=== PATIENT | female | born 1940 | race Caucasian/White ===

== ENCOUNTER 2019-07-08 11:19 | Inpatient (IN) ==
[2019-07-08] MEDS ORDERED: INFLUENZA VIRUS VACCINE 0.5 ML SYRINGE IM ONE (13:48)
[2019-07-08] MEDS ORDERED: MORPHINE 4 MG/1 ML VIAL IV PRN (14:39)
[2019-07-08] MEDS: PIPERACILLIN/TAZOBACTAM 3,375 MG in SODIUM CHLORIDE 0.9% 100 ML IV SCH ×2 (15:46→23:49)
[2019-07-08] MEDS: SODIUM CHLORIDE 0.9% 1,000 ML IV SCH (21:09)
[2019-07-08] MEDS: BISOPROLOL 5 MG TABLET PO SCH (21:13)
[2019-07-08] MEDS: DORZOLAMIDE/TIMOLOL OPH SOLN 10 ML BOTTLE BOTH EYES SCH (21:14)
[2019-07-08] MEDS: LATANOPROST 0.005% OPH SOLN 2.5 ML BOTTLE BOTH EYES SCH (21:15)
[2019-07-09 05:07] LABS: Basophils # 0.1 10*3/uL (0.0-0.2); Basophils % 0.4 % (0.0-0.8); Hematocrit 44.5 VOL% (35.7-47.0); Hemoglobin 13.9 GM/DL (12.0-16.0); Immature Granulocytes % 1.1 %; Immature Granulocytes Absolute 0.14 #; Lymphocytes # 1.8 10*3/uL (1.4-4.0); Lymphocytes % 13.5 % (21.3-54.2); Mean Corpuscular HGB Conc 31.2 GM/DL (32-36); Mean Corpuscular Volume 96.5 FL (87-102); Mean Platelet Volume 10.3 FL (9.6-12.0); Monocytes % 6.3 % (1.7-12.7); Neutrophils % 78.7 % (38.7-73.9); Platelet Count 205 T/CUMM (130-400); Red Blood Count 4.61 MC/CUMM (3.8-5.5); Red Cell Distribution Width 14.7 % (9.3-17.3); White Blood Count 13.2 T/CUMM (4-12)
[2019-07-09 05:22] LABS: Albumin 3.2 G/DL (3.4-5.0); Bilirubin,Total 0.9 MG/DL (0.2-1.0); Calcium 9.8 MG/DL (8.5-10.1); Osmolality,Calculated 303.7 MOS/KG (273-304); Total Protein 6.3 G/DL (6.4-8.3)
[2019-07-09] MEDS: PIPERACILLIN/TAZOBACTAM 3,375 MG in SODIUM CHLORIDE 0.9% 100 ML IV SCH ×3 (06:46→22:40)
[2019-07-09] MEDS: SODIUM CHLORIDE 0.9% 1,000 ML IV SCH ×3 (08:29→22:40)
[2019-07-09] MEDS: amLODIPine 5 MG TABLET PO SCH (09:21)
[2019-07-09] MEDS: DORZOLAMIDE/TIMOLOL OPH SOLN 10 ML BOTTLE BOTH EYES SCH ×2 (09:21→20:25)
[2019-07-09] MEDS: BISOPROLOL 5 MG TABLET PO SCH ×2 (09:21→20:25)
[2019-07-09] MEDS: LATANOPROST 0.005% OPH SOLN 2.5 ML BOTTLE BOTH EYES SCH (20:25)
[2019-07-10 05:09] LABS: Basophils # 0.1 10*3/uL (0.0-0.2); Basophils % 0.5 % (0.0-0.8); Hematocrit 43.5 VOL% (35.7-47.0); Hemoglobin 13.5 GM/DL (12.0-16.0); Immature Granulocytes % 0.8 %; Immature Granulocytes Absolute 0.09 #; Lymphocytes # 1.5 10*3/uL (1.4-4.0); Lymphocytes % 13.8 % (21.3-54.2); Mean Corpuscular Volume 96.5 FL (87-102); Monocytes % 6.6 % (1.7-12.7); Neutrophils % 78.3 % (38.7-73.9); Platelet Count 178 T/CUMM (130-400); Red Blood Count 4.51 MC/CUMM (3.8-5.5); Red Cell Distribution Width 14.7 % (9.3-17.3)
[2019-07-10 05:41] LABS: Bilirubin,Total 0.7 MG/DL (0.2-1.0); Calcium 9.4 MG/DL (8.5-10.1); Osmolality,Calculated 304.3 MOS/KG (273-304); Total Protein 6.2 G/DL (6.4-8.3)
[2019-07-10] MEDS: PIPERACILLIN/TAZOBACTAM 3,375 MG in SODIUM CHLORIDE 0.9% 100 ML IV SCH ×2 (06:06→16:00)
[2019-07-10] MEDS ORDERED: ONDANSETRON 4 MG/2 ML VIAL IV PRN ×2 (07:14→13:13)
[2019-07-10] MEDS ORDERED: LIDOCAINE 1%/EPI INJ 20 ML VIAL ONE ×2 (07:43→09:13)
[2019-07-10] MEDS ORDERED: TISSUE ADHESIVE 1 EACH APPLICATOR TOP ONE ×2 (07:44→09:13)
[2019-07-10] MEDS: DORZOLAMIDE/TIMOLOL OPH SOLN 10 ML BOTTLE BOTH EYES SCH ×2 (08:45→21:22)
[2019-07-10] MEDS: amLODIPine 5 MG TABLET PO SCH (08:45)
[2019-07-10] MEDS: BISOPROLOL 5 MG TABLET PO SCH ×2 (08:45→21:21)
[2019-07-10] MEDS: SODIUM CHLORIDE 0.9% 1,000 ML IV SCH (09:15)
[2019-07-10] MEDS ORDERED: ceFAZolin 1,000 MG VIAL ONE (10:27)
[2019-07-10] MEDS ORDERED: SODIUM CHLORIDE 0.9% 1,000 ML IV PRN (11:14)
[2019-07-10] MEDS ORDERED: SUGAMMADEX 200 MG/2 ML VIAL IV ONE (12:22)
[2019-07-10] MEDS ORDERED: PROPOFOL 200 MG/20 ML VIAL IV ONE (12:54)
[2019-07-10] MEDS ORDERED: ETOMIDATE 40 MG/20 ML VIAL IV ONE (12:55)
[2019-07-10] MEDS ORDERED: LIDOCAINE 2% 5 ML VIAL ONE (12:55)
[2019-07-10] MEDS ORDERED: fentaNYL 100 MCG/2 ML VIAL ONE (12:55)
[2019-07-10] MEDS ORDERED: GLYCOPYRROLATE 0.4 MG/2 ML VIAL ONE (12:55)
[2019-07-10] MEDS ORDERED: PHENYLEPHRINE 1 MG/10 ML SYRINGE IV ONE (12:55)
[2019-07-10] MEDS ORDERED: ONDANSETRON 4 MG/2 ML VIAL ONE ×2 (12:55→13:00)
[2019-07-10] MEDS ORDERED: HYDROCORTISONE 100 MG VIAL ONE (12:55)
[2019-07-10] MEDS ORDERED: SEVOFLURANE 1 UNIT/15 MINUTE INH ONE (12:55)
[2019-07-10] MEDS ORDERED: NEOSTIGMINE 10 MG/10 ML VIAL ONE (12:56)
[2019-07-10] MEDS ORDERED: ROCURONIUM 100 MG/10 ML VIAL IV ONE (12:56)
[2019-07-10] MEDS ORDERED: SODIUM CHLORIDE 0.9% 1,000 ML IV ONE (12:56)
[2019-07-10] MEDS ORDERED: ALBUTEROL/IPRATROPIUM 3 ML NEB RESP TX PRN (12:58)
[2019-07-10] MEDS ORDERED: MORPHINE 4 MG/1 ML VIAL IV PRN ×2 (12:58)
[2019-07-10] MEDS ORDERED: ACETAMINOPHEN 325 MG TABLET PO PRN (12:58)
[2019-07-10] MEDS ORDERED: HYDROmorphone 2 MG/1 ML VIAL ONE (13:00)
[2019-07-10] MEDS: HYDROmorphone 2 MG/1 ML VIAL IV PRN ×3 (13:09→19:53)
[2019-07-10] MEDS: DEXTROSE 5% NACL 0.45% 1,000 ML IV SCH (14:00)
[2019-07-10] MEDS ORDERED: HYDROmorphone 2 MG/1 ML VIAL IV PRN (15:00)
[2019-07-10] MEDS: cefOXitin 2,000 MG in SYRINGE 1 EACH IV SCH ×2 (16:15→23:54)
[2019-07-10] MEDS: ONDANSETRON 4 MG/2 ML VIAL IV PRN (17:20)
[2019-07-10 17:26] LABS: Osmolality,Calculated 303.4 MOS/KG (273-304)
[2019-07-10 17:27] LABS: PT Patient Result 10.4 SECS (9.6-12.2)
[2019-07-10 18:36] LABS: Basophils # 0.1 10*3/uL (0.0-0.2); Basophils % 0.3 % (0.0-0.8); Eosinophils % 0.1 % (0.00-10.9); Hematocrit 40.9 VOL% (35.7-47.0); Hemoglobin 12.8 GM/DL (12.0-16.0); Immature Granulocytes % 0.9 %; Immature Granulocytes Absolute 0.16 #; Lymphocytes % 5.4 % (21.3-54.2); Mean Corpuscular HGB Conc 31.3 GM/DL (32-36); Mean Corpuscular Volume 98.1 FL (87-102); Monocytes % 2.9 % (1.7-12.7); Neutrophils % 90.4 % (38.7-73.9); Platelet Count 206 T/CUMM (130-400); Red Blood Count 4.17 MC/CUMM (3.8-5.5); Red Cell Distribution Width 14.8 % (9.3-17.3); White Blood Count 18.7 T/CUMM (4-12)
[2019-07-10] MEDS: LATANOPROST 0.005% OPH SOLN 2.5 ML BOTTLE BOTH EYES SCH (21:22)
[2019-07-11] MEDS: DEXTROSE 5% NACL 0.45% 1,000 ML IV SCH ×4 (00:42→17:00)
[2019-07-11] MEDS: PIPERACILLIN/TAZOBACTAM 3,375 MG in SODIUM CHLORIDE 0.9% 100 ML IV SCH ×3 (00:44→16:57)
[2019-07-11] MEDS: HYDROmorphone 2 MG/1 ML VIAL IV PRN ×3 (01:08→12:48)
[2019-07-11] MEDS: cefOXitin 2,000 MG in SYRINGE 1 EACH IV SCH (05:12)
[2019-07-11 06:06] LABS: Basophils # 0.1 10*3/uL (0.0-0.2); Basophils % 0.3 % (0.0-0.8); Hematocrit 38.1 VOL% (35.7-47.0); Hemoglobin 11.9 GM/DL (12.0-16.0); Immature Granulocytes % 0.9 %; Immature Granulocytes Absolute 0.14 #; Lymphocytes # 1.6 10*3/uL (1.4-4.0); Lymphocytes % 9.9 % (21.3-54.2); Mean Corpuscular HGB Conc 31.2 GM/DL (32-36); Mean Corpuscular Volume 98.7 FL (87-102); Mean Platelet Volume 9.6 FL (9.6-12.0); Monocytes % 6.9 % (1.7-12.7); Platelet Count 195 T/CUMM (130-400); Red Blood Count 3.86 MC/CUMM (3.8-5.5); Red Cell Distribution Width 14.7 % (9.3-17.3); White Blood Count 16.3 T/CUMM (4-12)
[2019-07-11 06:25] LABS: Albumin 2.9 G/DL (3.4-5.0); Bilirubin,Total 0.6 MG/DL (0.2-1.0); Calcium 8.2 MG/DL (8.5-10.1); Osmolality,Calculated 294.1 MOS/KG (273-304); Total Protein 6.3 G/DL (6.4-8.3)
[2019-07-11] MEDS: amLODIPine 5 MG TABLET PO SCH (09:33)
[2019-07-11] MEDS: DORZOLAMIDE/TIMOLOL OPH SOLN 10 ML BOTTLE BOTH EYES SCH ×2 (09:33→21:54)
[2019-07-11] MEDS: BISOPROLOL 5 MG TABLET PO SCH ×2 (09:33→21:54)
[2019-07-11] MEDS: ONDANSETRON 4 MG/2 ML VIAL IV PRN ×2 (13:37→19:19)
[2019-07-11] MEDS: LATANOPROST 0.005% OPH SOLN 2.5 ML BOTTLE BOTH EYES SCH (21:54)
[2019-07-12] MEDS: PIPERACILLIN/TAZOBACTAM 3,375 MG in SODIUM CHLORIDE 0.9% 100 ML IV SCH ×2 (01:20→09:38)
[2019-07-12] MEDS: ONDANSETRON 4 MG/2 ML VIAL IV PRN (04:26)
[2019-07-12 04:56] LABS: Basophils # 0.1 10*3/uL (0.0-0.2); Basophils % 0.4 % (0.0-0.8); Hematocrit 41.4 VOL% (35.7-47.0); Hemoglobin 12.9 GM/DL (12.0-16.0); Immature Granulocytes % 1.1 %; Immature Granulocytes Absolute 0.19 #; Lymphocytes # 1.6 10*3/uL (1.4-4.0); Lymphocytes % 9.6 % (21.3-54.2); Mean Corpuscular HGB Conc 31.2 GM/DL (32-36); Mean Corpuscular Volume 96.7 FL (87-102); Mean Platelet Volume 10.2 FL (9.6-12.0); Monocytes % 5.7 % (1.7-12.7); Neutrophils % 83.2 % (38.7-73.9); Platelet Count 238 T/CUMM (130-400); Red Blood Count 4.28 MC/CUMM (3.8-5.5); White Blood Count 16.7 T/CUMM (4-12)
[2019-07-12 05:34] LABS: Albumin 3.2 G/DL (3.4-5.0); Bilirubin,Total 0.8 MG/DL (0.2-1.0); Calcium 9.2 MG/DL (8.5-10.1); Osmolality,Calculated 292.1 MOS/KG (273-304); Total Protein 6.8 G/DL (6.4-8.3)
[2019-07-12] MEDS: amLODIPine 5 MG TABLET PO SCH (08:38)
[2019-07-12] MEDS: BISOPROLOL 5 MG TABLET PO SCH ×2 (08:38→20:37)
[2019-07-12] MEDS: DORZOLAMIDE/TIMOLOL OPH SOLN 10 ML BOTTLE BOTH EYES SCH ×2 (08:39→20:37)
[2019-07-12] MEDS: HEPARIN DRIP 25,000 UNITS/500 ML PREMIX IV SCH (13:19)
[2019-07-12] MEDS ORDERED: SIMETHICONE CHEW 80 MG TABLET PO PRN (15:15)
[2019-07-12] MEDS: ALLOPURINOL 100 MG TABLET PO SCH (16:39)
[2019-07-12] MEDS: LATANOPROST 0.005% OPH SOLN 2.5 ML BOTTLE BOTH EYES SCH (20:37)
[2019-07-13 05:59] LABS: Basophils # 0.1 10*3/uL (0.0-0.2); Basophils % 0.5 % (0.0-0.8); Hematocrit 39.3 VOL% (35.7-47.0); Hemoglobin 11.9 GM/DL (12.0-16.0); Immature Granulocytes % 1.3 %; Immature Granulocytes Absolute 0.15 #; Lymphocytes # 1.5 10*3/uL (1.4-4.0); Lymphocytes % 13.6 % (21.3-54.2); Mean Corpuscular HGB Conc 30.3 GM/DL (32-36); Mean Corpuscular Volume 98.5 FL (87-102); Monocytes % 7.1 % (1.7-12.7); Neutrophils % 77.5 % (38.7-73.9); Platelet Count 188 T/CUMM (130-400); Red Blood Count 3.99 MC/CUMM (3.8-5.5); White Blood Count 11.2 T/CUMM (4-12)
[2019-07-13 06:15] LABS: Calcium 8.7 MG/DL (8.5-10.1); Osmolality,Calculated 283.5 MOS/KG (273-304)
[2019-07-13 06:50] LABS: Risk Ratio 4.97
[2019-07-13] MEDS: HEPARIN DRIP 25,000 UNITS/500 ML PREMIX IV SCH (08:18)
[2019-07-13] MEDS: amLODIPine 5 MG TABLET PO SCH (09:02)
[2019-07-13] MEDS: BISOPROLOL 5 MG TABLET PO SCH ×2 (09:02→21:02)
[2019-07-13] MEDS: DORZOLAMIDE/TIMOLOL OPH SOLN 10 ML BOTTLE BOTH EYES SCH ×2 (09:02→21:02)
[2019-07-13] MEDS: ALLOPURINOL 100 MG TABLET PO SCH (09:02)
[2019-07-13] MEDS: LATANOPROST 0.005% OPH SOLN 2.5 ML BOTTLE BOTH EYES SCH (21:02)
[2019-07-13] MEDS: APIXABAN 2.5 MG TABLET PO SCH (21:02)
[2019-07-14 05:41] LABS: Basophils # 0.1 10*3/uL (0.0-0.2); Basophils % 0.5 % (0.0-0.8); Eosinophils % 0.1 % (0.00-10.9); Hematocrit 37.3 VOL% (35.7-47.0); Hemoglobin 11.5 GM/DL (12.0-16.0); Immature Granulocytes % 0.9 %; Lymphocytes # 1.5 10*3/uL (1.4-4.0); Lymphocytes % 12.9 % (21.3-54.2); Mean Corpuscular HGB Conc 30.8 GM/DL (32-36); Mean Corpuscular Volume 96.1 FL (87-102); Mean Platelet Volume 10.4 FL (9.6-12.0); Monocytes % 7.3 % (1.7-12.7); Neutrophils % 78.3 % (38.7-73.9); Platelet Count 213 T/CUMM (130-400); Red Blood Count 3.88 MC/CUMM (3.8-5.5); Red Cell Distribution Width 14.9 % (9.3-17.3); White Blood Count 11.2 T/CUMM (4-12)
[2019-07-14] MEDS: DORZOLAMIDE/TIMOLOL OPH SOLN 10 ML BOTTLE BOTH EYES SCH ×2 (08:45→20:37)
[2019-07-14] MEDS: ALLOPURINOL 100 MG TABLET PO SCH (08:45)
[2019-07-14] MEDS: APIXABAN 2.5 MG TABLET PO SCH ×2 (08:45→20:37)
[2019-07-14] MEDS: amLODIPine 5 MG TABLET PO SCH (08:45)
[2019-07-14] MEDS: BISOPROLOL 5 MG TABLET PO SCH ×2 (08:45→20:37)
[2019-07-14] MEDS: LATANOPROST 0.005% OPH SOLN 2.5 ML BOTTLE BOTH EYES SCH (20:37)
[2019-07-15 05:36] LABS: Calcium 8.8 MG/DL (8.5-10.1); Osmolality,Calculated 283.5 MOS/KG (273-304)
[2019-07-15] MEDS: APIXABAN 2.5 MG TABLET PO SCH (08:45)
[2019-07-15] MEDS: amLODIPine 5 MG TABLET PO SCH (08:46)
[2019-07-15] MEDS: BISOPROLOL 5 MG TABLET PO SCH (08:46)
[2019-07-15] MEDS: ALLOPURINOL 100 MG TABLET PO SCH (08:46)
[2019-07-15] MEDS: DORZOLAMIDE/TIMOLOL OPH SOLN 10 ML BOTTLE BOTH EYES SCH (08:47)
[2019-07-15 11:58] VITALS: BP 130/79
== END 2019-07-15 13:05 | disposition swing bed (61) | DRG 415 ==
LOC: N.3E → SUATTDRO 13:11
PROVIDERS: ADMIT Internal Medicine; ATTEND Internal Medicine
PROC: LAPCHOL (2019-07-10 10:04)